=== PATIENT | male | born 1960 ===

== ENCOUNTER 2018-08-09 07:45 | Emergency (ER) | payer OTHER ==
[~2018-08-09] VITALS: Ht 175.3 cm; Wt 90.7 kg
[2018-08-09] MEDS ORDERED: TOPROL XL25 M1 (08:08)
[2018-08-09] MEDS ORDERED: ZOCOR5 MG (08:09)
== END 2018-08-09 12:27 | disposition home or self-care (01) ==
LOC: ER 07:45
DX: N20.0 Calculus of kidney (principal); R10.32 Left lower quadrant pain